=== PATIENT | male | born 1945 | race Caucasian/White ===

== ENCOUNTER 2017-02-16 12:18 | Emergency (ER) | payer OTHER, MEDICARE ==
[~2017-02-16] VITALS: Ht 175.3 cm; Wt 68.0 kg
[~2017-02-16 12:18] MED LIST: ASPI325T24 PO; AUGM875T PO; ESTER C PO; LISI10TA PO; PLAV75TA PO; TOPR100T15 PO; ZOCO40TA PO
[2017-02-16 12:21] VITALS: BP 175/82; PULSE 99; RESP 20; TEMP 98.6; O2SAT 99
[2017-02-16] MEDS ORDERED: FOLI400T PO (14:17)
[2017-02-16] MEDS ORDERED: PLAV75TA29 PO (14:18)
[2017-02-16] MEDS ORDERED: FIBE625T PO (14:19)
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
[2017-02-16] MEDS ORDERED: ROBA500T PO (16:04)
[2017-02-16] MEDS ORDERED: METHOCARBAMOL 500 MG TAB PO ONE (16:15)
[2017-02-16] MEDS ORDERED: ACETAMINOPHEN 325 MG TAB PO ONE (16:15)
[2017-02-16 16:16] VITALS: BP 159/74; PULSE 87; RESP 20; O2SAT 98
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
== END 2017-02-16 17:28 | disposition home or self-care (01) ==
LOC: NEPK 12:18
DX: S16.1XXA Strain of muscle, fascia and tendon at neck level, initial encounter (principal); V49.9XXA Car occupant (driver) (passenger) injured in unspecified traffic accident, initial encounter; Z79.01 Long term (current) use of anticoagulants; E78.00 Pure hypercholesterolemia, unspecified; I25.10 Atherosclerotic heart disease of native coronary artery without angina pectoris; I10 Essential (primary) hypertension; I25.2 Old myocardial infarction
CPT/HCPCS: 70450; 72125; 99284; L0150